=== PATIENT | female | born 1930 | race Caucasian/White ===

== ENCOUNTER 2016-12-02 19:00 | Inpatient (IN) | payer OTHER ==
--- NOTE | ~2016-12-02 | HP ---
History And Physical [address] [id number] [facility] [place]. [address] NAME: XIMENA TURCIOS NOVEMBER : [birth year] STATUS : ADM Aditi PAT#: [id number] AGE: 86 ADM/REG DATE : 12/03/16 MR#: [id number] REPORT SERV DATE: 12/03/16 DICTATED BY: HARLEY RODRIGUES DATE: 12/03/16 REPORT STATUS : Draft TRANSCRIBED BY: MODL DATE: 12/03/16 DATE OF ADMISSION: 12/03/2016 CHIEF COMPLAINT: Passing bright red blood per rectum. HISTORY OF PRESENT ILLNESS: This is an 86-year-old female with a history of diverticulitis and GI bleeding in the past, history of diabetes mellitus, and CVA with left- sided residual weakness, who presents to the emergency room at [facility] with the above-mentioned complaint. History is obtained from the patient, her family who is at bedside, and reviewing data available on the [employer] system. According to Mrs. Turcios and the family, she had initially had some diarrhea on Saturday and Saturday which she says had no blood. She was fine until this morning when she started having bright red blood per rectum. She got up as usual in the morning and at the time of her first bathroom visits, she saw bright red blood in the bowel. Later at 10 in the morning she had to go again, which according to her is very unusual. She says she never goes a second time in a day. Again, she saw blood and then it happened four or five times more. The lady with whom she was living with was very concerned and decided to send her to the hospital. In the emergency room, initial workup including a CT scan of the abdomen and pelvis did not reveal any acute diverticulitis explaining her GI bleed. She does have extensive diverticulosis. However, she has passed bright red blood while she was here in the ER. Hospitalist Service is asked to admit her for further evaluation and treatment. At the time of my evaluation, she denied any chest pain, palpitations, or orthopnea. She had no cough, hemoptysis, night sweats, or weight loss. She denied any recent falls or loss of consciousness. No history of recent fevers, chills, nausea, vomiting. Did have diarrhea as mentioned above. No other history of hematemesis or hematuria. No other history of recent travel or exposures other than those mentioned above. 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 SOCIAL HISTORY: She has never smoked. Does not drink, or use recreational drugs. She used to work in [employer]. FAMILY HISTORY: Noncontributory. MEDICATIONS: Her medications at home were reviewed by me in the chart today and reordered by me. REVIEW OF SYSTEMS: As in history of present illness. All other systems were reviewed in detail and are quite unremarkable. History And Physical [address] [address] [facility] [place]. [address] NAME: XIMENA TURCIOS NOVEMBER : 30 STATUS : ADM Aditi PAT#: [id number] AGE: 86 ADM/REG DATE : 12/03/16 MR#: [id number] REPORT SERV DATE: 12/03/16 DICTATED BY: HARLEY RODRIGUES DATE: 12/03/16 REPORT STATUS : Draft TRANSCRIBED BY: DERREK DATE: 12/03/16 PHYSICAL EXAMINATION: GENERAL: This is a pleasant 86-year old, not in any acute distress. HEENT: Her head is atraumatic and normocephalic. She is alert, awake, oriented to time, place, and person. Her pupils are equal, reacting to light and accommodating. External ocular muscles are intact. Membranes are moist and pink. Sclerae are nonicteric. NECK: Supple with no jugular venous distention, lymphadenopathy, or thyromegaly. LUNGS: Clear to auscultation with no wheezes, rubs, or crackles. HEART: Heart sounds were regular with no murmurs, rubs, or gallops. ABDOMEN: Soft and nontender. Bowel sounds are present. EXTREMITIES: No cyanosis, clubbing, or edema. NEUROLOGIC: Grossly intact. No focal sensory or motor deficits. Higher functions appeared intact. Gait was not examined. VITAL SIGNS: Her vital signs showed a temperature of 98.2, pulse 89, respirations 16 a minute, blood pressure was 165/74, and oxygen saturations were 97% on room air. LABORATORY DATA: Reviewed on the [employer] system showed a sodium of 139, potassium 4.1, chloride 109, CO2 of 20, BUN was 27 with a creatinine of 1.26 which is up from her baseline of 1 and below. Her glucose is 155. Alkaline phosphatase was 63. ALT and AST were within normal limits. [place] [address], hemoglobin was 13.5, hematocrit 42.5, and platelet count was 254. MCV was 79.9. Urinalysis showed moderate leukocyte esterase, nitrite was negative. There were 6 wbc's and rare bacteria. Films of the CT scan of her abdomen and pelvis were reviewed by me on the PACS today and interpreted by me. Official Radiology report was also reviewed. There is no acute abdominal or pelvic pathology at this time. There is extensive diverticulosis without diverticulitis. A 12-lead EKG done in the emergency room was reviewed and interpreted by me. There is normal sinus rhythm, rate is [address]-T changes. IMPRESSION: 1. Acute gastrointestinal bleeding. 2. Hematochezia. 3. Mild urinary tract infection. 4. History of diverticulitis and gastrointestinal bleeding. 5. Diabetes mellitus type 2. 6. History of bladder cancer. 7. History of cerebrovascular accident in the past. PLAN: We will admit Mrs. Turcios to the Hospitalist Service with telemetry for a 24-hour observation period. We will start her on IV fluids for volume resuscitation. She may have clear liquids, if she can tolerate it. We will start her on IV antibiotics with History And Physical [address] [address] NAME: XIMENA TURCIOS NOVEMBER : 30 STATUS : ADM Aditi PAT#: [id number] AGE: 86 ADM/REG DATE : 12/03/16 MR#: [id number] REPORT SERV DATE: 12/03/16 DICTATED BY: HARLEY RODRIGUES DATE: 12/03/16 REPORT STATUS : Draft TRANSCRIBED BY: DERREK DATE: 12/03/16 levofloxacin and Flagyl. We will also go ahead and consult Gastroenterology Service to evaluate her in the morning. She does not see a advance scout on a regular basis. We will also control blood sugars with NovoLog given subcutaneously per sliding scale and place her on SCDs for DVT prophylaxis while she is here. I have discussed the above plans with the patient and the family. Questions were answered. She and her family are agreeable to the above recommendations. Hospitalist Service will be following her during her stay here. /MODL Harley Rodrigues M.D. / [id number] CC: MD Rubia Quintana II, FNP
--- NOTE | ~2016-12-02 | DS ---
Discharge Summary [id number] [place]. [address] NAME: XIMENA KENNEDY NOVEMBER : 30 STATUS : DIS IN PAT#: [id number] AGE: 86 ADM/REG DATE : 12/03/16 MR#: [id number] REPORT SERV DATE: 12/06/16 DICTATED BY: CRISTINA GALO DATE: 12/06/16 REPORT STATUS : Draft TRANSCRIBED BY: MODL DATE: 12/06/16 ADMISSION DATE: 12/03/2016 DISCHARGE DATE: 12/06/2016 GI CONSULTATION: Dr. Bryant. FINAL DIAGNOSES: 1. Lower gastrointestinal bleed with a history of diverticulosis, possible diverticular bleed. 2. Diabetes. 3. History of cerebrovascular accident with left-sided weakness. 4. Hypertension. DIAGNOSTIC EXAM: CAT scan of the abdomen and pelvis showing no acute abdominal or pelvic pathology. Extensive diverticulosis sigmoid colon. No acute diverticulitis or colitis pattern. Stable changes of cystectomy and construction of an ileal conduit with possibly related hernia containing mesenteric fat and non-incarcerated segment of transverse colon, status post left nephrectomy and hysterectomy, mild chronic renal cortical scarring posterior mid pole right kidney. HOSPITAL COURSE: Please refer to the H and P done by Dr. Roque dated on 12/03/2016. Briefly, this is an 86-year-old female with a history of diverticulitis and GI bleeding in the past. She had an episode that happened in May and a colonoscopy done by Dr. Bryant showed that the patient has severe diverticulosis in the sigmoid colon. No evidence of diverticular bleed and internal hemorrhoids, significant looping of the colon, redundant colon, ileum was normal. The patient also has a history of diabetes and old cerebrovascular accident with left-sided weakness. The patient started having some diarrhea few days prior to admission, then started having some hematochezia. The patient then went to the emergency room where a CAT scan was done which shows the above findings. The patient was then admitted by Dr. Roque. H and H were monitored and it remained stable and the patient never needed any blood transfusion. We got Dr. Bryant involved, and based on his consultation, he said that we can do this in two ways, one they could scope her or two, they just see if she be managed conservatively, and if there is no bleeding that follow up later on. The patient was prepped with GoLYTELY. She did not have anymore bleeding and H and H remained stable as mentioned above. When she came in, we held her aspirin and Plavix. We restarted that one and yet there is no bleeding. While she was here though, she was found to have high blood pressure and we were giving hydralazine. Further history revealed that she has been having a baseline of 160s to 180s. I discussed with her the importance of controlling the blood pressure, especially on diabetics, and she agreed to start lisinopril. The patient was given lisinopril and there was some mild drop in the blood pressure, and I am hoping that as she continues to take this, it will improve her. The patient feels good right now, wants to go home, and I discussed it with the daughter, who said that she does not want any colonoscopies. The patient will now be discharged and follow up with her PCP, Rubia Mcrae, in one to two weeks. Follow up with Dr. Bryant in one to two months. The patient will be given a prescription for lisinopril and she will be on the following medications. Aspirin 81 mg a day, Lipitor 40 mg at bedtime, Januvia 50 mg a day, baclofen 10 mg twice a Discharge Summary [address] [address] NAME: XIMENA KENNEDY : 30 STATUS : DIS IN PAT#: [id number] AGE: 86 ADM/REG DATE : 12/03/16 MR#: [id number] REPORT SERV DATE: 12/06/16 DICTATED BY: CRISTINA GALO DATE: 12/06/16 REPORT STATUS : Draft TRANSCRIBED BY: DERREK DATE: 12/06/16 day, Plavix 75 mg a day, Colace 100 mg twice a day, folic acid 1 mg a day, lisinopril as mentioned, multivitamin once a day, Protonix 40 mg a day, MiraLAX one packet at bedtime, Metamucil one packet every morning, metformin 500 mg once a day. This has been explained to the patient. She agreed and understood the plan. DICTATED BY: Cora Merino/DERREK Cristina Galo M.D. / [id number] CC: Cora Merino KRISTINA CARLTON Nikhil Shah, M.D.
--- NOTE | ~2016-12-02 | CN ---
Consultation Report [facility] [address] [facility] [place]. [address] NAME: XIMENA TURCIOS ANA : 30 STATUS : ADM Aditi PAT#: [id number] AGE: 86 ADM/REG DATE : 12/03/16 MR#: [id number] REPORT SERV DATE: 12/04/16 DICTATED BY: CESAR BUTLER DATE: 12/03/16 REPORT STATUS : Draft TRANSCRIBED BY: MODL DATE: 12/03/16 DATE OF CONSULTATION: 12/03/[address] Harley Roque. REASON FOR CONSULTATION: Patient admitted with history of few episodes of hematochezia and mild decrease in H and H. HISTORY OF PRESENT ILLNESS: Ms. Turcios is an 86-year-old female known to ms, had similar bleeding in May last year, admitted, and had undergone a colonoscopy by ms. At that time, noted to have severe diverticulosis in the sigmoid and descending colon. The bleeding had stopped at that time while doing colonoscopy and she was observed and discharged. At this time, patient denies any abdominal pain associated with bleeding, but had at least 3 to 4 episodes of bleeding before she came to emergency room and in emergency room also had episode of bleeding also. But since she has been on the floor and taken the whole gallon of laxative, noted to have bleeding stopped; many bowel movements, last were without any blood or bloody tinged. There were all clear. All have some stool without blood. She had some diarrhea last Saturday and Saturday, but no blood seen. As per note, patient has multiple other chronic medical problem including history of diverticulosis, GI bleed in the past, history of diabetes mellitus, history of CVA and left-sided residual weakness noted, also history of bladder cancer requiring significant surgical repair and ileal pouch to create a new bladder. No associated chest pain. No palpitation. No syncope. No dizziness. No melena either. No nausea, vomiting. HOME MEDICATIONS: Include aspirin, Lipitor, baclofen, Plavix, Colace, folic acid, insulin on sliding scale, metformin, multivitamin tablet, and Januvia. ALLERGIES: NO KNOWN DRUG ALLERGIES. PAST MEDICAL HISTORY: Significant for diabetes, hypercholesteremia, blood cancer, and stroke. PAST SURGICAL HISTORY: Urostomy, nephrectomy, hysterectomy, and cholecystectomy. SOCIAL HISTORY: No smoking. No alcohol use. Good family support. Daughter is at the bedside. FAMILY HISTORY: Significant for CVA. REVIEW OF SYSTEMS: Noted from the chart. Patient denies any acute change in vision or hearing. No acute neurological or psychiatric symptoms. According to her, she is feeling fine. No abdominal pain. No chest pain. No difficulty breathing. All other systems reviewed as per history. LAB: Sodium 139, potassium 4.1, BUN 27, creatinine 1.26. Liver enzymes normal. White count Consultation Report [address] [id number] [facility] [place]. [address] NAME: XIMENA TURCIOS NOVEMBER : 30 STATUS : ADM Aditi PAT#: [id number] AGE: 86 ADM/REG DATE : 12/03/16 MR#: [id number] REPORT SERV DATE: 12/04/16 DICTATED BY: CESAR BUTLER DATE: 12/03/16 REPORT STATUS : Draft TRANSCRIBED BY: DERREK DATE: 12/03/16 8,200, on admission was 10.9. Hemoglobin on admission was 13.5, but since then three more H and H were stable about 11.0. Hematocrit on admission 42.5, but now it is staying around 33 to 34. MCV 79, RDW 16.5, platelets 213. PTT 28.6, ProTime 16.1, INR 1.3. CT of the abdomen and pelvis shows no acute abdominal or pelvic pathology. No imaging explanation for the reported cramping abdominal pain and bloody diarrhea. Noted to have extensive diverticulosis in sigmoid colon. No acute diverticulitis or colitis pattern clear. Three stable changes of cystectomy and construction of an ileal conduit with possibly related hernia containing mesenteric fat and nonincarcerated segment of transverse colon, status post left nephrectomy and hysterectomy, mild chronic renal cortical scarring. ASSESSMENT: Recurrent hematochezia, last episode was in May. Patient has extensive diverticulosis mainly in sigmoid and descending colon. Since admission, patient was given GoLYTELY to clean her out and last few bowel movements were without any blood or blood tinge, and last three H and H were stable. Had a long discussion with patient and the daughter, explained about most likely cause of bleeding is diverticulosis, but it has stopped now. Since the bleeding has stopped and H and H are stable, there are two ways to go by; one is to evaluate further and try to rule out distant possibility of some else bleeding other than diverticulosis or just take this as diverticulosis bleeding and just follow her without any procedures and observe her over coming 24 to 36 hours. If she does not bleed, we can let her go home. Looking at her other medical problems plus extensive procedures done and surgeries done on her abdomen, may be a good idea to observe her, and that is what they also thought and decided at this time to observe her over coming day or two. We will follow her closely. If she starts bleeding again, definitely we will look inside. HAYDEN/DERREK Cesar Butler M.D. / [id number] CC: Barry Patel II, MD
[~2016-12-02 19:00] MED LIST: ASAB PO; ASABAYER PO; CENTRUM PO; DSS PO; FOLIC PO; GLUCCHONDR PO; GLUCOSAMINEPO PO; GLUCPH PO; HALF81 PO; HUMALOG SC; LIOR10 PO; LIPITOR40 PO; MULTIPLE VIT PO; NORV25 PO; PLAVIX PO; PRIN5 PO; VOLTAREN1 % TOP; ZOFRAN ODT4 MG PO; [UNRECOGNIZED DRUG - OTHER]
[2016-12-02 19:08] LABS: BASOPHILS 0.6 %; BASOPHILS ABSOLUTE 0.06 10/3/uL (0.0-0.16); EOSINOPHILS 8.5 %; EOSINOPHILS ABSOLUTE 0.93 10/3/uL (0.0-0.53); IMMATURE GRANULOCYTES 0.2 %; IMMATURE GRANULOCYTES ABSOLUTE 0.02 10/3/uL (0.0-0.11); LYMPHOCYTES 24.9 %; LYMPHOCYTES ABSOLUTE 2.71 10/3/uL (0.67-4.30); MEAN CORPUS HGB CONC 31.8 g/dL (32.0-36.0); MEAN CORPUSCULAR HEMOGLOB 25.4 pg (26.0-34.0); MONOCYTES 9.9 %; MONOCYTES ABSOLUTE 1.08 10/3/uL (0.21-1.20); NEUTROPHILS 55.9 %; NEUTROPHILS ABSOLUTE 6.09 10/3/uL (2.02-8.40); PLATELET COUNT 254 10/3/uL (150-400); RBC DISTRIBUTION WIDTH 16.6 % (12.0-16.0); WHITE BLOOD CELLS 10.9 10/3/uL (4.5-10.5)
[2016-12-02 19:09] LABS: HEMATOCRIT 42.5 % (36.0-48.0); HEMOGLOBIN 13.5 g/dL (12.0-16.0); MANUAL DIFF NO %; MEAN CORPUSCULAR VOLUME 79.9 fL (80-100); RED CELL COUNT 5.32 10/6/uL (4.0-5.6)
[2016-12-02 19:20] LABS: PARTIAL THROMBO TIME 26.9 SEC (22.5-37.2); PROTIME (NOT ORD) 13.5 SEC (12.0-14.5)
[2016-12-02 19:22] LABS: CALCIUM, SERUM 9.5 MG/DL (8.5-10.4); CHLORIDE, SERUM 109 MMOL/L (96-112); CO2 (CARBON DIOXIDE) 20 MMOL/L (24-34); CREATININE 1.26 MG/DL (0.55-1.02); GFR AFRICAN AMERICAN 45 ML/MIN (>=60); GFR NON AFRICAN AMERICAN 39 ML/MIN (>=60); POTASSIUM, SERUM 4.1 MMOL/L (3.5-5.3); SGOT(AST) 31 U/L (5-40); SGPT(ALT) 38 U/L (5-65); SODIUM, SERUM 139 MMOL/L (135-148)
[2016-12-02 19:23] LABS: A/G RATIO 1.1 (0.7-1.9); ALKALINE PHOSPHATASE 63 U/L (45-117); BUN (BLOOD UREA NITROGEN) 27 MG/DL (6-23); GLOBULIN 3.7 G/DL (2.5-4.1); GLUCOSE, SERUM 155 MG/DL (60-99); TOTAL BILIRUBIN 0.3 MG/DL (0-1.2); TOTAL PROTEIN 7.7 G/DL (6.0-8.5)
[2016-12-02 21:17] LABS: ASCORBIC ACID (UR NOT ORDER) NEG (NEG); BILIRUBIN, URINE NEGATIVE (NEG); ER URINALYSIS TAT 0 Hrs 20 Mins; KETONE, URINE NEGATIVE (NEG); LEUKOCYTE ESTERASE(NOT OR MOD (NEG); WBC (NOT ORDERED) (RFLEX) 6 (0-5)
[2016-12-02 21:18] LABS: NITRITE (URINE) NEG (NEG)
[2016-12-02] MEDS ORDERED: LIOR10 PO (21:51)
[2016-12-02] MEDS ORDERED: PLAVIX PO (21:51)
[2016-12-02] MEDS ORDERED: JANUVIA50 PO (21:52)
[2016-12-02] MEDS ORDERED: GLUCPH PO (21:53)
[2016-12-02] MEDS ORDERED: FOLIC PO (21:53)
[2016-12-02] MEDS ORDERED: DSS PO (21:54)
[2016-12-02] MEDS ORDERED: HALF81 PO (21:54)
[2016-12-02] MEDS ORDERED: MULTIVITAMI1 PO (21:54)
[2016-12-02] MEDS ORDERED: LIPITOR40 PO (21:55)
[2016-12-02] MEDS ORDERED: PROTONIX PO (21:55)
[2016-12-02] MEDS ORDERED: METPAKSF PO (21:56)
[2016-12-02] MEDS ORDERED: MIRALAX POWDER1 PKT PO (21:56)
[2016-12-03 06:02] LABS: BASOPHILS 0.6 %; BASOPHILS ABSOLUTE 0.05 10/3/uL (0.0-0.16); EOSINOPHILS 9.7 %; EOSINOPHILS ABSOLUTE 0.79 10/3/uL (0.0-0.53); HEMOGLOBIN 11.2 g/dL (12.0-16.0); IMMATURE GRANULOCYTES 0.2 %; IMMATURE GRANULOCYTES ABSOLUTE 0.02 10/3/uL (0.0-0.11); LYMPHOCYTES 25.6 %; LYMPHOCYTES ABSOLUTE 2.09 10/3/uL (0.67-4.30); MEAN CORPUS HGB CONC 32.4 g/dL (32.0-36.0); MEAN CORPUSCULAR HEMOGLOB 25.6 pg (26.0-34.0); MEAN PLATELET VOLUME 9.9 fL (9.2-13.0); NEUTROPHILS 52.9 %; NEUTROPHILS ABSOLUTE 4.31 10/3/uL (2.02-8.40); PLATELET COUNT 213 10/3/uL (150-400); RBC DISTRIBUTION WIDTH 16.5 % (12.0-16.0); RED CELL COUNT 4.38 10/6/uL (4.0-5.6); WHITE BLOOD CELLS 8.2 10/3/uL (4.5-10.5)
[2016-12-03 06:05] LABS: HEMATOCRIT 34.6 % (36.0-48.0); MANUAL DIFF NO %
[2016-12-03 06:15] LABS: PHOSPHORUS, SERUM 2.5 MG/DL (2.5-4.5)
[2016-12-03 11:00] LABS: HEMATOCRIT 33.3 % (36.0-48.0); HEMOGLOBIN 10.6 g/dL (12.0-16.0)
[2016-12-03 11:14] LABS: INTERNATIONAL NORMAL RATI 1.3 UNITS (-); PARTIAL THROMBO TIME 28.6 SEC (22.5-37.2)
[2016-12-03 11:15] LABS: PROTIME (NOT ORD) 16.1 SEC (12.0-14.5)
[2016-12-04 09:00] LABS: BASOPHILS 0.5 %; BASOPHILS ABSOLUTE 0.04 10/3/uL (0.0-0.16); EOSINOPHILS 7.1 %; EOSINOPHILS ABSOLUTE 0.57 10/3/uL (0.0-0.53); HEMATOCRIT 35.2 % (36.0-48.0); HEMOGLOBIN 11.2 g/dL (12.0-16.0); IMMATURE GRANULOCYTES 0.6 %; IMMATURE GRANULOCYTES ABSOLUTE 0.05 10/3/uL (0.0-0.11); LYMPHOCYTES 24.3 %; LYMPHOCYTES ABSOLUTE 1.96 10/3/uL (0.67-4.30); MEAN CORPUS HGB CONC 31.8 g/dL (32.0-36.0); MEAN CORPUSCULAR HEMOGLOB 25.5 pg (26.0-34.0); MEAN CORPUSCULAR VOLUME 80.2 fL (80-100); MEAN PLATELET VOLUME 10.1 fL (9.2-13.0); MONOCYTES 8.4 %; MONOCYTES ABSOLUTE 0.68 10/3/uL (0.21-1.20); NEUTROPHILS 59.1 %; NEUTROPHILS ABSOLUTE 4.75 10/3/uL (2.02-8.40); PLATELET COUNT 203 10/3/uL (150-400); RBC DISTRIBUTION WIDTH 16.6 % (12.0-16.0); RED CELL COUNT 4.39 10/6/uL (4.0-5.6); WHITE BLOOD CELLS 8.1 10/3/uL (4.5-10.5)
[2016-12-04 09:01] LABS: MANUAL DIFF NO %
[2016-12-04 09:10] LABS: BUN (BLOOD UREA NITROGEN) 10 MG/DL (6-23); CALCIUM, SERUM 8.4 MG/DL (8.5-10.4); CHLORIDE, SERUM 114 MMOL/L (96-112); CO2 (CARBON DIOXIDE) 20 MMOL/L (24-34); CREATININE 1.11 MG/DL (0.55-1.02); GFR AFRICAN AMERICAN 52 ML/MIN (>=60); GFR NON AFRICAN AMERICAN 45 ML/MIN (>=60); GLUCOSE, SERUM 236 MG/DL (60-99); POTASSIUM, SERUM 3.7 MMOL/L (3.5-5.3); SODIUM, SERUM 143 MMOL/L (135-148)
[2016-12-04 11:44] LABS: HEMATOCRIT 33.4 % (36.0-48.0); HEMOGLOBIN 10.8 g/dL (12.0-16.0)
[2016-12-04 20:01] LABS: HEMATOCRIT 33.5 % (36.0-48.0); HEMOGLOBIN 10.6 g/dL (12.0-16.0)
[2016-12-05 06:28] LABS: BASOPHILS 0.5 %; BASOPHILS ABSOLUTE 0.04 10/3/uL (0.0-0.16); EOSINOPHILS 9.3 %; EOSINOPHILS ABSOLUTE 0.81 10/3/uL (0.0-0.53); HEMATOCRIT 33.8 % (36.0-48.0); HEMOGLOBIN 10.9 g/dL (12.0-16.0); IMMATURE GRANULOCYTES 0.2 %; IMMATURE GRANULOCYTES ABSOLUTE 0.02 10/3/uL (0.0-0.11); LYMPHOCYTES 22.9 %; MANUAL DIFF NO %; MEAN CORPUS HGB CONC 32.2 g/dL (32.0-36.0); MEAN CORPUSCULAR HEMOGLOB 25.6 pg (26.0-34.0); MEAN CORPUSCULAR VOLUME 79.3 fL (80-100); MEAN PLATELET VOLUME 10.1 fL (9.2-13.0); MONOCYTES 10.9 %; MONOCYTES ABSOLUTE 0.95 10/3/uL (0.21-1.20); NEUTROPHILS 56.2 %; PLATELET COUNT 199 10/3/uL (150-400); RBC DISTRIBUTION WIDTH 16.8 % (12.0-16.0); RED CELL COUNT 4.26 10/6/uL (4.0-5.6); WHITE BLOOD CELLS 8.7 10/3/uL (4.5-10.5)
[2016-12-05 08:10] LABS: BUN (BLOOD UREA NITROGEN) 8 MG/DL (6-23); CALCIUM, SERUM 8.8 MG/DL (8.5-10.4); CHLORIDE, SERUM 113 MMOL/L (96-112); CO2 (CARBON DIOXIDE) 21 MMOL/L (24-34); CREATININE 1.07 MG/DL (0.55-1.02); GFR AFRICAN AMERICAN 54 ML/MIN (>=60); GFR NON AFRICAN AMERICAN 47 ML/MIN (>=60); POTASSIUM, SERUM 3.7 MMOL/L (3.5-5.3); SODIUM, SERUM 144 MMOL/L (135-148)
[2016-12-05 08:11] LABS: GLUCOSE, SERUM 150 MG/DL (60-99)
[2016-12-06] MEDS ORDERED: PRIN10 PO (09:40)
== END 2016-12-06 11:47 | disposition home or self-care (01) | DRG 378 ==
LOC: ER 19:00 → 7NO 12-03 00:15
PROVIDERS: Emergency Medicine; Internal Medicine; Internal Medicine Gastroenterology; Internal Medicine Pulmonary Disease; Nurse Practitioner Acute Care
DX: K57.31 Diverticulosis of large intestine without perforation or abscess with bleeding (principal); I69.354 Hemiplegia and hemiparesis following cerebral infarction affecting left non-dominant side; E11.9 Type 2 diabetes mellitus without complications; D62 Acute posthemorrhagic anemia; I10 Essential (primary) hypertension; Z85.51 Personal history of malignant neoplasm of bladder; Z79.82 Long term (current) use of aspirin; Z79.02 Long term (current) use of antithrombotics/antiplatelets; Z79.4 Long term (current) use of insulin; Z90.5 Acquired absence of kidney; Z90.710 Acquired absence of both cervix and uterus; Z90.49 Acquired absence of other specified parts of digestive tract
CPT/HCPCS: 36415; 74176; 80048; 80053; 81001; 82962; 83036; 83605; 83735; 84100; 84145; 85014; 85018; 85025; 85610; 85730; 86850; 86900; 86901; 87040; 87077; 87086; 87186; 93005; 96365; 96368; 97161-GP; 99285; A9270-GY; J0360; J1956